=== PATIENT | female | born 1960 | race Caucasian/White ===

== ENCOUNTER → 2017-02-18 | Outpatient (CLI) | payer OTHER ==
--- NOTE | 2017-02-22 08:43 | MM ---
Reason for exam: screening (asymptomatic). Last mammogram was performed 1 year and 2 months ago. History: Patient is postmenopausal. Physical Findings: A clinical breast exam by your physician is recommended on an annual basis and results should be correlated with mammographic findings. MG Screening Mammo w CAD Bilateral CC and MLO view(s) were taken. Prior study comparison: December 09, 2015, bilateral MG screening mammo w CAD. No significant changes when compared with prior studies. ASSESSMENT: Benign, BI-RAD 2 RECOMMENDATION: Routine screening mammogram of both breasts in 1 year.
== END | disposition home or self-care (01) ==
LOC: RADMAMWWP 16:04
PROVIDERS: ATTEND Family Medicine
DX: Z12.31 Encounter for screening mammogram for malignant neoplasm of breast (principal)

== ENCOUNTER → 2018-04-05 | Outpatient (CLI) | payer OTHER ==
--- NOTE | 2018-04-06 13:38 | MM ---
Reason for exam: screening (asymptomatic). Last mammogram was performed 1 year and 2 months ago. History: Patient is postmenopausal. Physical Findings: A clinical breast exam by your physician is recommended on an annual basis and results should be correlated with mammographic findings. MG Screening Mammo w CAD Bilateral CC and MLO view(s) were taken. Prior study comparison: February 18, 2017, bilateral MG screening mammo w CAD. December 09, 2015, bilateral MG screening mammo w CAD. The breast tissue is heterogeneously dense. This may lower the sensitivity of mammography. No suspicious abnormality. No significant changes when compared with prior studies. ASSESSMENT: Negative, BI-RAD 1 RECOMMENDATION: Routine screening mammogram of both breasts in 1 year.
== END | disposition home or self-care (01) ==
LOC: RADMAMWWP 15:17
PROVIDERS: ATTEND Family Medicine
DX: Z12.31 Encounter for screening mammogram for malignant neoplasm of breast (principal)
CPT/HCPCS: 77067

== ENCOUNTER → 2019-05-01 | Outpatient (CLI) | payer OTHER ==
--- NOTE | 2019-05-03 10:13 | MM ---
Reason for exam: screening (asymptomatic). Last mammogram was performed 1 year and 1 month ago. History: Patient is postmenopausal. Physical Findings: A clinical breast exam by your physician is recommended on an annual basis and results should be correlated with mammographic findings. MG Screening Mammo w CAD Bilateral CC and MLO view(s) were taken. Prior study comparison: April 05, 2018, bilateral MG screening mammo w CAD. February 18, 2017, bilateral MG screening mammo w CAD. The breast tissue is heterogeneously dense. This may lower the sensitivity of mammography. No significant changes when compared with prior studies. ASSESSMENT: Benign, BI-RAD 2 RECOMMENDATION: Routine screening mammogram of both breasts in 1 year.
== END | disposition home or self-care (01) ==
LOC: RADMAMWWP 15:22
PROVIDERS: ATTEND Family Medicine
DX: Z12.31 Encounter for screening mammogram for malignant neoplasm of breast (principal)
CPT/HCPCS: 77067

== ENCOUNTER → 2020-07-18 | Outpatient (CLI) | payer OTHER ==
--- NOTE | 2020-07-21 09:57 | MM ---
Reason for exam: screening (asymptomatic). Last mammogram was performed 1 year and 3 months ago. History: Patient is postmenopausal. Family history of breast cancer in sister at age 63. Physical Findings: A clinical breast exam by your physician is recommended on an annual basis and results should be correlated with mammographic findings. MG Screening Mammo w CAD Bilateral CC and MLO view(s) were taken. Prior study comparison: May 01, 2019, bilateral MG screening mammo w CAD. April 05, 2018, bilateral MG screening mammo w CAD. The breast tissue is heterogeneously dense. This may lower the sensitivity of mammography. There is no discrete abnormality. No significant changes when compared with prior studies. ASSESSMENT: Negative, BI-RAD 1 RECOMMENDATION: Routine screening mammogram of both breasts in 1 year.
== END | disposition home or self-care (01) ==
LOC: RADMAMWWP 14:20
PROVIDERS: ATTEND Family Medicine
DX: Z12.31 Encounter for screening mammogram for malignant neoplasm of breast (principal)
CPT/HCPCS: 77067

== ENCOUNTER → 2020-07-24 | Outpatient (CLI) | payer OTHER ==
--- NOTE | 2020-07-25 13:57 | US ---
EXAMINATION TYPE: US thyroid st tissue head/neck DATE OF EXAM: 07/24/2020 COMPARISON: NONE CLINICAL HISTORY: E03.9 Hypothyroidism. Hypothyroidism, patient on thyroid meds GLAND SIZE: Right Lobe: 4.1 x 1.7 x 1.4 cm Overall Parenchyma: heterogeneous Left Lobe: 3.9 x 1.5 x 1.0 cm Overall Parenchyma: heterogeneous Isthmus Thickness: 0.3 cm NODULES RIGHT: # of nodules measured on right: 0 LEFT: # of nodules measured on left: 0 ISTHMUS: # of nodules measured in the isthmus: 0 Bilateral neck scanned, no evidence of lymphadenopathy. IMPRESSION: 1. Normal thyroid scan
== END | disposition home or self-care (01) ==
LOC: RADUSWWP 16:25
PROVIDERS: ATTEND Family Medicine
DX: E03.9 Hypothyroidism, unspecified (principal)
CPT/HCPCS: 76536

== ENCOUNTER → 2021-04-29 | Outpatient (CLI) | payer OTHER ==
--- NOTE | 2021-04-29 16:23 | XR ---
AP pelvis HISTORY: [id number] RT KNEE PAIN,PELVIC PAIN Single frontal view of the pelvis submitted. Bone mineralization, joint spaces and alignment are maintained. Mild degenerative disc change noted i n the lower lumbar spine. No fracture or dislocation. IMPRESSION: No abnormality evident to account for patient's symptoms. Hip MRI may be of benefit.
--- NOTE | 2021-04-29 16:25 | XR ---
Right knee HISTORY: [id number] RT KNEE PAIN,PELVIC PAIN 3 views the right knee There is spurring at the patellofemoral joint. Chondrocalcinosis is present. Bone mineralization is d ecreased. Alignment and joint spaces appear maintained with exception of possible joint space loss in the patellofemoral joint. There is marginal spurring at the medial compartment. IMPRESSION: Correlate for crystal deposition arthropathy, osteoarthritis.
== END | disposition home or self-care (01) ==
LOC: RADXRYALE 16:01
PROVIDERS: ATTEND Physician Assistant Medical
DX: M25.561 Pain in right knee (principal); R10.2 Pelvic and perineal pain
CPT/HCPCS: 72170

== ENCOUNTER → 2023-12-29 | Outpatient (CLI) | payer OTHER ==
--- NOTE | 2023-12-29 15:44 | CTL ---
EXAMINATION TYPE: CT Low Dose Lung DATE OF EXAM ORDERED: 12/29/2023 HISTORY: . Lung cancer screening CT DLP: [address] CTDI: 2.18 mGy Automated exposure control for dose reduction was used. COMPARISON: None available. TECHNIQUE: Low dose computed tomography scan was performed through the chest at 1 mm thick sections a nd reconstructed images in multiple planes at 1 mm and [address] DIAGNOSTIC QUALITY: Satisfactory FINDINGS: LUNG NODULES: Scattered sub-5 mm pulmonary nodules are seen throughout the lungs bilaterally. No nodu les are seen greater than 5 mm.. LUNGS: COPD: Severity: None Fibrosis: Severity: None Lymph nodes: No adenopathy. Other findings: RIGHT PLEURAL SPACE: Effusion: None Calcification: None Thickening: None Pneumothorax: None LEFT PLEURAL SPACE: Effusion: None Calcification: None Thickening: None Pneumothorax: None HEART: Heart Size: Mild cardiomegaly. Coronary Calcification: None Pericardial Effusion: None OTHER FINDINGS: Upper abdomen: None Bony thorax: None Supraclavicular region: None Other: None IMPRESSION: Scattered small pulmonary nodules. CT LUNG RAD AND CT CHEST RECOMMENDATION: Lung-Rad 2 Benign Appearance or Behavior: Continue annual sc reening with LDCT in 12 months.
--- NOTE | 2023-12-29 20:55 | BD ---
EXAMINATION TYPE: Axial Bone Density DATE OF EXAM: 12/29/2023 CLINICAL HISTORY: 63 years old Female. ICD-10 CODE: M85.9 DISORDER OF BONE DENSITY Height: 66 Weight: 178 FRAX RISK QUESTIONS: Alcohol (3 or more units per day): no Family History (Parent hip fracture): no Glucocorticoids (More than 3mos): no (Ex: prednisone, prednisolone, methylprednisolone, dexamethasone, and hydrocortisone). History of Fracture in Adulthood: yes Secondary Osteoporosis: 1. Type 1 Diabetes: no 2. Hyperthyroidism: no 3. Menopause before 45: yes 4. Malnutrition: no 5. Chronic liver disease: no Rheumatoid Arthritis: no Current Tobacco Use: no RISK FACTORS HISTORY OF: History of Wrist Fracture: left wrist When: 2022 Surgery to Spine/Hip(right/left)/Wrist (right/left): no MEDICATIONS: Thyroid Medications: levothyroxine How Lon years EXAM MEASUREMENTS: Bone mineral densitometry was performed using the [employer] System. Bone mineral density as measured about the Lumbar spine is: ----- L1-L4(G/cm2): 1.004 T Score Values are as follows: ----- L1: -0.8 ----- L2: -1.1 ----- L3: -1.6 ----- L4: -2.3 ----- L1-L4: -1.5 Z Score Values are as follows: ----- L1: 0.2 ----- L2: -0.1 ----- L3: -0.6 ----- L4: -1.3 ----- L1-L4: -0.4 Bone mineral density : baseline Bone mineral density about the R hip (g/cm2): 0.902 Bone mineral density about the L hip (g/cm2): 0.930 T Score values are as follows: -----R Neck: -1.7 -----L Neck: -1.3 -----R Total: -0.8 -----L Total: -0.6 Z Score values are as follows: -----R Neck: -0.6 -----L Neck: -0.2 -----R Total: 0.0 -----L Total: 0.2 Bone mineral density : baseline FRAX%s: The graph provided illustrates a 15.1% chance for a major osteoporotic fx and a 1.9% chance f or the hips probability for fx in 10 years time. IMPRESSION: Osteopenia (T Score between -2.5 and -1). There is slightly increased risk of fracture and the patient may be considered for treatment. Re-Screen 2-5 years. NOTE: T-SCORE=SD OF THE YOUNG ADULT MEAN.
--- NOTE | 2023-12-30 10:45 | MM ---
Reason for Exam: Screening (asymptomatic). Last screening mammogram was performed 12 month(s) ago. Patient History: Menarche at age 11. First Full-Term at age 15. Left ovary removed at age 23. Right ovary removed at age 23. Hysterectomy at age 23. Postmenopausal. Patient has history of breast feeding. Patient tested for TP53 outcome was uncertain variant. Sister (jennifer) had breast cancer, age 63. Sister (Brunilda) had breast cancer, age 61. Risk Values: Cristina 5 year model risk: 7.8%. NCI Lifetime model risk: 26.6%. Prior Study Comparison: 02/18/2017 Bilateral Screening Mammogram, [facility]. 04/05/2018 Bilateral Screening Mammogram, [facility]. 05/01/2019 Bilateral Screening Mammogram, [facility]. 07/18/2020 Bilateral Screening Mammogram, [facility]. 12/22/2021 Bilateral Screening Mammogram, [facility]. 12/23/2022 Bilateral MG screening mammo w CAD, [facility]. Tissue Density: The breast tissue is heterogeneously dense. This may lower the sensitivity of mammography. Findings: Analyzed By CAD. There is no suspicious group of microcalcifications or new suspicious mass in either breast. Benign calcifications. There is a 4 mm nodule in the central upper aspect of the left breast spot compression view recommended. Overall Assessment: Incomplete: need additional imaging evaluation, BI-RAD 0 Management: Special View Mammogram of the left breast. . Patient should continue monthly self-breast exams. A clinical breast exam by your physician is recommended on an annual basis. This exam should not preclude additional follow-up of suspicious palpable abnormalities. Note on Cristina scores and lifetime risk: 1. A Cristina score greater than 3% is considered moderate risk. If this is the case, consider specialist referral to assess eligibility for a risk reducing agent. 2. If overall lifetime risk for the development of breast cancer is 20% or higher, the patient may qualify for future screening with alternating mammogram and breast MRI. Electronically signed and approved by: Deon Beverly M.D. Radiologis
== END | disposition home or self-care (01) ==
LOC: RADMAMWWP 14:00
PROVIDERS: ATTEND Family Medicine
DX: Z12.31 Encounter for screening mammogram for malignant neoplasm of breast (principal); Z12.2 Encounter for screening for malignant neoplasm of respiratory organs; M85.89 Other specified disorders of bone density and structure, multiple sites; R91.8 Other nonspecific abnormal finding of lung field; F17.210 Nicotine dependence, cigarettes, uncomplicated; Z80.3 Family history of malignant neoplasm of breast; Z78.0 Asymptomatic menopausal state
CPT/HCPCS: 71271; 77067; 77080

== ENCOUNTER → 2024-01-03 | Outpatient (CLI) | payer OTHER ==
--- NOTE | 2024-01-03 15:08 | MM ---
Reason for Exam: Additional evaluation requested from abnormal screening. Last screening mammogram was performed less than 1 month ago. Patient History: Menarche at age 11. First Full-Term at age 15. Left ovary removed at age 23. Right ovary removed at age 23. Hysterectomy at age 23. Postmenopausal. Patient has history of breast feeding. Patient tested for TP53 outcome was uncertain variant. Sister (jennifer) had breast cancer, age 63. Sister (Brunilda) had breast cancer, age 61. Risk Values: Cristina 5 year model risk: 7.8%. NCI Lifetime model risk: 26.6%. Prior Study Comparison: 12/22/2021 Bilateral Screening Mammogram, [facility]. 12/23/2022 Bilateral MG screening mammo w CAD, [facility]. 12/29/2023 Bilateral MG screening mammo w CAD, [facility]. Tissue Density: Left: The breast tissue is heterogeneously dense. This may lower the sensitivity of mammography. Findings: Analyzed By CAD. 4 mm persistent circumscribed mass 12:00 position middle depth for which further ultrasound evaluation is recommended. The second area of inferior subareolar nodularity has not persisted, most suggestive of superimposition shadow. Overall Assessment: Incomplete: need additional imaging evaluation, BI-RAD 0 Management: Diagnostic Breast Ultrasound of the left breast. Electronically signed and approved by: Saturnino Rose M.D. Radiologist
--- NOTE | 2024-01-03 15:32 | USB ---
Reason for Exam: Additional evaluation requested from abnormal screening. Patient History: Menarche at age 11. First Full-Term at age 15. Left ovary removed at age 23. Right ovary removed at age 23. Hysterectomy at age 23. Postmenopausal. Patient has history of breast feeding. Patient tested for TP53 outcome was uncertain variant. Sister (jennifer) had breast cancer, age 63. Sister (Brunilda) had breast cancer, age 61. Risk Values: Fransisco 5 year model risk: 7.8%. NCI Lifetime model risk: 26.6%. Technique: Method: Targeted. Prior Study Comparison: 12/22/2021 Bilateral Screening Mammogram, [facility]. 12/23/2022 Bilateral MG screening mammo w CAD, [facility]. 12/29/2023 Bilateral MG screening mammo w CAD, [facility]. Findings: The upper section of the breast of the left breast, the axilla of the left breast and the retroareolar of the left breast were scanned. Targeted ultrasound 12:00 position at the site of mammographic nodularity shows a 4 mm area to small to characterize but probably a tiny cyst. No other solid or cystic lesion or axillary adenopathy. Six-month follow-up recommended. Overall Assessment: Probably benign, BI-RAD 3 Management: Diagnostic Mammogram of the left breast in 6 months. SEE NOTE BELOW IN REGARDS TO PATIENT'S INCREASED 5 YEAR FRANSISCO SCORE AND INCREASED LIFETIME RISK SCORE. A clinical breast exam by your physician is recommended on an annual basis and results should be correlated with mammographic findings. This exam should not preclude additional follow-up of suspicious palpable abnormalities. Results were given to the patient verbally at the time of exam. Note on Fransisco scores and lifetime risk: 1. A Fransisco score greater than 3% is considered moderate risk. If this is the case, consider specialist referral to assess eligibility for a risk reducing agent. 2. If overall lifetime risk for the development of breast cancer is 20% or higher, the patient may qualify for future screening with alternating mammogram and breast MRI. Electronically signed and approved by: Saturnino Rose M.D. Radiologist
== END | disposition home or self-care (01) ==
LOC: RADMAMWWP 14:45
PROVIDERS: ATTEND Family Medicine
DX: R92.333 Mammographic heterogeneous density, bilateral breasts (principal); Z78.0 Asymptomatic menopausal state; Z80.3 Family history of malignant neoplasm of breast
CPT/HCPCS: 77061; 77065

== ENCOUNTER → 2024-07-12 | Outpatient (CLI) | payer MEDICARE, OTHER ==
--- NOTE | 2024-07-12 14:19 | USB ---
Reason for Exam: Follow-up at short interval from prior study. Patient History: Menarche at age 11. First Full-Term at age 15. Left ovary removed at age 23. Right ovary removed at age 23. Hysterectomy at age 23. Postmenopausal. Patient has history of breast feeding. Patient tested for TP53 outcome was uncertain variant. Sister (jennifer) had breast cancer, age 63. Sister (Brunilda) had breast cancer, age 61. Risk Values: Fransisco 5 year model risk: 7.8%. NCI Lifetime model risk: 26.6%. Technique: Method: Targeted. Prior Study Comparison: 12/23/2022 Bilateral MG screening mammo w CAD, [facility]. 12/29/2023 Bilateral MG screening mammo w CAD, [facility]. 01/03/2024 Left MG 3D work up w/cad , [facility]. Findings: The upper section of the breast of the left breast, the axilla of the left breast and the retroareolar of the left breast were scanned. Targeted ultrasound 12:00 left breast including scanning of the subareolar region and axilla. At the 12:00 position, 5 cm from the nipple, there is redemonstration of the circumscribed but mildly lobulated lesion currently measuring 5 x 4 x 4 mm versus 4 x 4 x 4 mm, previously. Too small to characterize with a tiny cyst suspected. Ongoing short interval follow-up can be performed given patient's risk scores. No other solid or cystic lesion or axillary lymphadenopathy. Overall Assessment: Probably benign, BI-RAD 3 Management: Diagnostic Mammogram of both breasts in 6 months. Total one-year follow-up left breast and annual exam of the right breast. A clinical breast exam by your physician is recommended on an annual basis and results should be correlated with mammographic findings. This exam should not preclude additional follow-up of suspicious palpable abnormalities. Results were given to the patient verbally at the time of exam. NOTE ON FRANSISCO SCORES AND LIFETIME RISK: 1. A Fransisco score greater than 3% is considered moderate risk. If this is the case, consider specialist referral to assess eligibility for a risk reducing agent. 2. If overall lifetime risk for the development of breast cancer is 20% or higher, the patient may qualify for future screening with alternating mammogram and breast MRI. Electronically signed and approved by: Saturnino Rose M.D. Radiologist
--- NOTE | 2024-07-13 10:32 | MM ---
Reason for Exam: Follow-up at short interval from prior study. Last screening mammogram was performed 7 month(s) ago. Patient History: Menarche at age 11. First Full-Term at age 15. Left ovary removed at age 23. Right ovary removed at age 23. Hysterectomy at age 23. Postmenopausal. Patient has history of breast feeding. Patient tested for TP53 outcome was uncertain variant. Sister (jennifer) had breast cancer, age 63. Sister (Brunilda) had breast cancer, age 61. Risk Values: Cristina 5 year model risk: 7.8%. NCI Lifetime model risk: 26.6%. Prior Study Comparison: 12/23/2022 Bilateral MG screening mammo w CAD, [facility]. 12/29/2023 Bilateral MG screening mammo w CAD, [facility]. 01/03/2024 Left MG 3D work up w/cad LT, [facility]. Tissue Density: Left: There are scattered areas of fibroglandular density. Findings: Analyzed By CAD. 5 mm nodularity, left breast middle depth minimally increased from 3 to 4 mm, previously. Otherwise, no significant change. Repeat ultrasound recommended. Overall Assessment: Incomplete: need additional imaging evaluation, BI-RAD 0 Management: Diagnostic Breast Ultrasound of the left breast. Electronically signed and approved by: Saturnino Rose M.D. Radiologist
== END | disposition home or self-care (01) ==
LOC: RADMAMWWP 13:08
PROVIDERS: ATTEND Family Medicine
DX: R92.8 Other abnormal and inconclusive findings on diagnostic imaging of breast
CPT/HCPCS: 77061; 77065

== ENCOUNTER → 2025-03-22 | Outpatient (CLI) | payer MEDICARE, OTHER ==
--- NOTE | 2025-03-22 12:56 | MM ---
Reason for Exam: Follow-up at short interval from prior study. Last mammogram was performed 1 year(s) and 3 month(s) ago. Patient History: Menarche at age 11. First Full-Term at age 15. Left ovary removed at age 23. Right ovary removed at age 23. Hysterectomy at age 23. Postmenopausal. Patient has history of breast feeding. Patient tested for TP53 outcome was uncertain variant. Sister (jennifer) had breast cancer, age 63. Sister (Brunilda) had breast cancer, age 61. Risk Values: Cristina 5 year model risk: 7.9%. NCI Lifetime model risk: 25.7%. Prior Study Comparison: 12/22/2021 Bilateral Screening Mammogram, [facility]. 12/23/2022 Bilateral MG screening mammo w CAD, [facility]. 12/29/2023 Bilateral MG screening mammo w CAD, [facility]. 01/03/2024 Left US breast workup limited LT, [facility]. 01/03/2024 Left MG 3D work up w/cad LT, [facility]. 07/12/2024 Left US breast limited LT, [facility]. 07/12/2024 Left MG 3D diag mammo w/cad LT, [facility]. Tissue Density: There are scattered areas of fibroglandular density. Findings: Analyzed By CAD. Benign-appearing vascular calcification bilaterally is redemonstrated. Benign-appearing bilateral axillary lymph nodes are again seen. Stable sub5 mm circumscribed mass left breast upper aspect. No suspicious new or enlarging masses. Overall Assessment: Benign, BI-RAD 2 Management: Screening Mammogram of both breasts in 1 year. . Results were given to the patient verbally at the time of exam. Patient should continue monthly self-breast exams. A clinical breast exam by your physician is recommended on an annual basis. This exam should not preclude additional follow-up of suspicious palpable abnormalities. Note on Cristina scores and lifetime risk: 1. A Cristina score greater than 3% is considered moderate risk. If this is the case, consider specialist referral to assess eligibility for a risk reducing agent. 2. If overall lifetime risk for the development of breast cancer is 20% or higher, the patient may qualify for future screening with alternating mammogram and breast MRI. [facility], , 03/22/2025 12:07 PM. Electronically signed and approved by: Collin Arauz M.D.
== END | disposition home or self-care (01) ==
LOC: RADMAMWWP 11:01
PROVIDERS: ATTEND Family Medicine
DX: R92.8 Other abnormal and inconclusive findings on diagnostic imaging of breast (principal); R92.1 Mammographic calcification found on diagnostic imaging of breast; Z78.0 Asymptomatic menopausal state; Z80.3 Family history of malignant neoplasm of breast
CPT/HCPCS: 77066; G0279; 77062

== ENCOUNTER → 2025-04-12 | Outpatient (CLI) | payer MEDICARE, OTHER ==
--- NOTE | 2025-04-12 16:07 | CTL ---
EXAMINATION TYPE: CT Low Dose Lung DATE OF EXAM ORDERED: 04/12/2025 COMPARISON: CT Low Dose Lung 12/29/2023 CLINICAL INDICATION: Female, 64 years old with history of Z12.2, Z87.891 PERSONAL HISTORY OF NICOTINE DEPEND; PHH, HISTORY OF SMOKING, Lung cancer screening, History of Smoking/tobacco use. TECHNIQUE: Low dose computed tomography scan was performed through the chest at 1 mm thick sections a nd reconstructed images in multiple planes at 1 mm and [address] DLP: 120.[address] CTDI: 2.9 mGy Automated exposure control for dose reduction was used. CT DIAGNOSTIC QUALITY: Satisfactory FINDINGS: Nodules: Scattered sub-5 mm pulmonary nodules are seen throughout the lungs bilaterally. No nodules are seen g reater than 5 mm. Example includes a right upper lobe 2.9 mm solid pulmonary nodule (series 6, image 25). LUNGS: COPD: Severity: None Fibrosis: Severity: None Lymph nodes: Couple calcified mediastinal and right hilar lymph nodes. Other findings: None RIGHT PLEURAL SPACE: Effusion: None Calcification: None Thickening: None Pneumothorax: None LEFT PLEURAL SPACE: Effusion: None Calcification: None Thickening: None Pneumothorax: None HEART: Heart Size: Mildly Enlarged Coronary Calcification: Small Pericardial Effusion: None OTHER FINDINGS: Upper abdomen: Left colonic diverticulosis without visualized acute diverticulitis. Calcified granulo ma within the right hepatic lobe. Bony thorax: None Supraclavicular region: None Other: Mild atherosclerotic calcification of the aorta. IMPRESSION: Scattered sub-5 mm pulmonary nodules are seen throughout the lungs bilaterally. No nodule s are seen greater than 5 mm. No new or enlarging pulmonary nodules. CT LUNG RAD AND CT CHEST RECOMMENDATION: Lung-Rad 2 Benign Appearance or Behavior: Continue annual sc reening with LDCT in 12 months. S Modifier (other clinically significant findings): None [facility], , 04/12/2025 4:04 PM
== END | disposition home or self-care (01) ==
LOC: RADCTMAIN 15:24
PROVIDERS: ATTEND Family Medicine
DX: Z12.2 Encounter for screening for malignant neoplasm of respiratory organs (principal); R91.8 Other nonspecific abnormal finding of lung field; Z87.891 Personal history of nicotine dependence
CPT/HCPCS: 71271

== ENCOUNTER → 2025-05-24 | Outpatient (CLI) | payer MEDICARE, OTHER ==
[2025-05-24 10:58] VITALS: BP 120/83; PULSE 59; RESP 16; TEMP 98.4
--- NOTE | 2025-05-24 11:38 | P.GSCN ---
History of Present Illness Consult date: 05/24/25 Reason for Consult: high risk breast cancer Requesting physician: Wilfrid Dean History of present illness: Katelynn is a 64 year old female seen in consultation for Dr. Dean regarding high risk breast cancer. She had a bilateral mammogram on 03-22-25 which was BIRAD 2. Prior she was being followed for a lobulated area in the left breast. She does not feel any lumps masses or nodules of concern in either breast. She has never had any surgery on her breast. She is not complaining of any nipple discharge or skin changes. She has not had any recent trauma or infection in the breast. Low-dose CT scan performed of the chest for lung surveillance on 04 12 25 this was a lung RADS 2 benign appearance; upper abdomen left colonic diverticulosis, calcified granuloma in the right liver Cristina risk analysis: 5-year risk 7.9% NCI lifetime risk 25.7% Caffeine: decaf two cups in am nicotine: vape 2 cigarettes/day; used to smoke 1PPD for 25 years, stopped at 38, started vaping after this chocolate: occasional hormones: none; hysterectomy 1 ovary left done 40 years ago Family History: sister: 2 with breast cancer one with mets to liver Hormonal History: menarche: 11 , breast fed: no, age at first : 17 menopause: 30's hormones: none taken Surgery History: 3 C-sections Medical history: atenelol/told a small leak arthritis Social History: nicotine: as above alcohol: monthly drugs: none Review of Systems - Constitutional Denies fever, Denies weight loss - EENT Eyes: denies blurred vision Ears: deny: decreased hearing, tinnitus Ears, nose, mouth and throat: Denies dysphagia - Breasts bilateral: as per HPI - Cardiovascular Denies chest pain, Denies shortness of breath - Respiratory Reports as per HPI, Denies cough - Gastrointestinal Reports as per HPI - Genitourinary Genitourinary: Denies dysuria, Denies hematuria Menstruation: Reports post hysterectomy - Musculoskeletal Reports as per HPI - Integumentary Integumentary Comment(s): rash left chest wall, present 3 months Reports rash, Denies unusual bruising - Neurological Denies headaches, Denies syncope - Psychiatric Reports as per HPI - Endocrine Reports as per HPI - Hematologic/Lymphatic Denies easy bleeding, Denies easy bruising - Allergic/Immunologic Reports as per HPI Past Medical History History of Any Multi-Drug Resistant Organisms: Unobtainable Smoking Status: Current every day smoker, Vaper Past Alcohol Use History: Occasional Past Drug Use History: None Reported Medications and Allergies Home Medications Medication Instructions Recorded Confirmed Type Atorvastatin [Lipitor] 40 mg PO DAILY 05/24/25 05/24/25 History Levothyroxine Sodium 25 mcg PO DAILY 05/24/25 05/24/25 History Meloxicam [Mobic] 7.5 mg PO DAILY 05/24/25 05/24/25 History atenoloL 25 mg PO DAILY 05/24/25 05/24/25 History Allergies Allergy/AdvReac Type Severity Reaction Status Date / Time No Known Allergies Allergy Unverified 05/24/25 10:54 Surgical - Exam Vital Signs Temp Pulse Resp BP Pulse Ox 98.4 F 59 L 16 120/83 98 05/24/25 10:56 05/24/25 10:56 05/24/25 10:56 05/24/25 10:56 05/24/25 10:56 - General no distress - Eyes normal ocular movement - ENT no hearing loss - Neck trachea midline - Respiratory normal respiratory effort, clear to auscultation - Cardiovascular Rhythm: regular Heart Sounds: normal: S1, S2 - Abdomen Abdomen: soft, non tender, no guarding, no rigid, no rebound - Integumentary normal turgor - Neurologic no disoriented, no combative - Musculoskeletal normal gait - Psychiatric oriented to time, oriented to person, oriented to place, speech is normal, memory intact Breast Exam: BRA: sports X-large inspection: bilateral grade 2/3 ptosis Rash on the left axilla chest wall and on the right axilla/suspect fungal infection Palpation: Right breast: Multi positional exam no dominant masses or nodules of concern Right axilla: No adenopathy of concern Left breast: Multi positional exam no dominant masses or nodules of concern Left axilla: No adenopathy of concern Results Bilateral mammogram 03-22-2025 BI-RADS 2, Cristina risk 5-year 7.9%, NCI lifetime ris k 25.7% Assessment and Plan Assessment: Impression: Rash left chest wall/right chest wall/axilla/groin probable fungal infection High risk breast cancer Bilateral mammogram 03-22-2025 BI-RADS 2 2 sisters breast cancer Plan: Consider chemoprophylaxis appointment with medical oncology Alternating every 6 months MRI of the breast with mammogram secondary to NCI lifetime risk of 25.7% Bilateral breast MRI September with appointment at that time Patient to follow-up sooner any questions or concerns Nystatin to fungal areas Diflucan oral CC:
== END ==
LOC: WWCWWP 09:27
PROVIDERS: ATTEND Surgery
DX: R21 Rash and other nonspecific skin eruption (principal)